=== PATIENT | male | born 1985 | race American Indian/Alaskan Native ===

== ENCOUNTER 2016-11-19 18:05 | Emergency (ER) | payer SELFPAY ==
[2016-11-19 18:24] VITALS: BP 129/73
[2016-11-19] MEDS ORDERED: TYLENOL ONE (19:38)
[2016-11-19] MEDS ORDERED: TYLENOL PO ONE (19:40)
[2016-11-19] MEDS ORDERED: ROBITUSSIN AC PO ONE (19:54)
--- NOTE | 2016-11-19 19:56 | Emergency Department Report ---
HPI - General Chief Complaint: Upper Respiratory Infection Time Seen by Provider: 11/19/16 19:50 - HPI HPI: 31-year-old male presents to the ED she productive cough and generalized body aches 3 days. Patient states he has had symptoms for the past 3 days. Patient states that the Robitussin and TheraFlu and getting worse. Patient denies any sick contacts recently. No recent travel outside the country. Patient states he has been experiencing chills past couple of days. Patient denies nausea/vomiting/abdominal pain/chest pain/shortness of breath/ diarrhea. ED Past Medical Hx - Past Medical History Previous Medical History?: Yes Hx Asthma: Yes - Surgical History Past Surgical History?: Yes Hx Appendectomy: Yes - Social History Smoking Status: Current Every Day Smoker Substance Use Type: None - Medications Home Medications: Home Medications Medication Instructions Recorded Confirmed Last Taken Type Cyclobenzaprine [Flexeril 10 MG 10 mg PO TID PRN #3 tablet 03/19/14 Unknown Rx TAB] HYDROcodone/APAP 7.5-325 [[place] 1 each PO Q6HR PRN #20 tablet 03/19/14 Unknown Rx 7.5-325 mg TAB] Indomethacin 50 mg PO BID #30 capsule 03/01/15 Unknown Rx methOCARBAMOL [Robaxin TAB] 500 mg PO BID #30 tab 03/01/15 Unknown Rx Azithromycin [Zithromax] 250 mg PO DAILY #4 tablet 11/19/16 Unknown Rx Ibuprofen [Motrin 600 MG tab] 600 mg PO Q8H PRN #50 tablet 11/19/16 Unknown Rx guaiFENesin/CODEINE [Robitussin AC] 10 ml PO TID #90 ml 11/19/16 Unknown Rx ED Review of Systems ROS: Stated complaint: BODY ACHES Other details as noted in HPI Constitutional: denies: chills, fever, weakness Eyes: denies: eye pain, eye discharge, vision change ENT: denies: ear pain, throat pain, dental pain, hearing loss, epistaxis, congestion Respiratory: denies: cough, shortness of breath, wheezing Cardiovascular: denies: chest pain, palpitations Endocrine: no symptoms reported Gastrointestinal: denies: abdominal pain, nausea, vomiting, diarrhea, constipation, melena Genitourinary: denies: urgency, dysuria, frequency, hematuria, testicular pain, testicular mass Musculoskeletal: denies: back pain, joint swelling, arthralgia, myalgia Skin: denies: rash, lesions Neurological: denies: headache, weakness, numbness, paresthesias, confusion, abnormal gait Psychiatric: denies: anxiety, depression, homicidal thoughts, suicidal thoughts Hematological/Lymphatic: denies: easy bleeding, easy bruising, swollen glands Physical Exam - Physical Exam Vital Signs: Vital Signs 11/19/16 18:20 Temperature 100.2 F H Pulse Rate 61 Respiratory 24 Rate Blood Pressure 129/73 O2 Sat by Pulse 100 Oximetry Physical Exam: GENERAL: Alert and oriented x3, no apparent distress, Normal Gait, atraumatic. HEAD: Head is normocephalic and a-traumatic. EYES: Extra ocular muscles are intact. Pupils are equal, round, and reactive to light and accommodation. EARS: symetrical, atraumatic, non tender, ear canal clear and moderate cerumen, tympanic membrance non inflamed. gross auditory nml bilaterally. NOSE: Nose symetrical, Nontender,Nares appeared normal. MOUTH:Mouth is well hydrated and without lesions. Tonsils nonerythematous or swollen, Uvula midline, Tongue not elevated. Mucous membranes are moist. Posterior pharynx clear, no exudate or lesions. Patent airways. NECK: Supple. Non edematous, No carotid bruits. No lymphadenopathy or thyromegaly. LUNGS: Symetrical with respiration, No wheezing, no rales or crackles, CTAB. HEART: S1, S2 present, regular rate and rhythm without murmur, no rubs, no gallops. ABDOMEN: No organomegaly was noted,Positive bowel sounds, soft, and non- distended. . Nontender to palpation on all Quadrants, NO CVA tenderness. SKIN: Warm and dry, No lesions, No ulceration or induration present. ED Course Vital Signs 11/19/16 18:20 Temperature 100.2 F H Pulse Rate 61 Respiratory 24 Rate Blood Pressure 129/73 O2 Sat by Pulse 100 Oximetry ED Medical Decision Making - Radiology Data Radiology results: report reviewed, image reviewed FINAL REPORT EXAM: XR CHEST ROUTINE 2V HISTORY: cough/timothy/fever TECHNIQUE: Two view chest PA and lateral PRIORS: None. FINDINGS: Cardiac and mediastinal contours are unremarkable. No focal pulmonary infiltrate is identified. No pleural fluid collection seen. Pulmonary vasculature is unremarkable. IMPRESSION: Negative two-view chest Transcribed By: MARICRUZ Dictated By: BELLE RIVERS MD Electronically Authenticated By: BELLE RIVERS MD Signed Date/Time: 11/19/162021 - Medical Decision Making 31-year-old male presents with ED course: Patient received 650 mg of Tylenol, Robitussin-AC. Patient received azithromycin 500 mg in ED Chest x-ray ordered. Chest x-ray normal. Influenza test ordered. Influenza A and B negative. Discussed with patient full symptoms usually lasts for 4 weeks. Discussed follow-up. Primary care physician as referred. Discussed to take medication as prescribed. Patient states he understands and will follow-up. Vital signs are normal, fever was responsive to Tylenol. Critical care attestation.: If time is entered above; I have spent that time in minutes in the direct care of this critically ill patient, excluding procedure time. ED Disposition Clinical Impression: Flu-like symptoms, Bronchitis Disposition: DISCHARGED TO HOME OR SELFCARE Is pt being admited?: No Does the pt Need Aspirin: No Condition: Stable Instructions: Upper Respiratory Infection (ED), Acute Bronchitis (ED), Chronic Bronchitis (ED) Prescriptions: Azithromycin [Zithromax] 250 mg PO DAILY #4 tablet guaiFENesin/CODEINE [Robitussin AC] 10 ml PO TID #90 ml Ibuprofen [Motrin 600 MG tab] 600 mg PO Q8H PRN #50 tablet PRN Reason: Pain Referrals: PRIMARY MD CORNELL [Primary Care Provider] - 3-5 Days LAYO SIN MD [Referring] - 3-5 Days [facility] [Outside] - 3-5 Days [facility] [Outside] - 3-5 Days [facility] [Outside] - 3-5 Days Forms: Accompanied Note, Work/School Release Form(ED) Time of Disposition: 20:54
--- NOTE | 2016-11-19 20:25 | XRay Report ---
FINAL REPORT EXAM: XR CHEST ROUTINE 2V HISTORY: cough/timothy/fever TECHNIQUE: Two view chest PA and lateral PRIORS: None. FINDINGS: Cardiac and mediastinal contours are unremarkable. No focal pulmonary infiltrate is identified. No pleural fluid collection seen. Pulmonary vasculature is unremarkable. IMPRESSION: Negative two-view chest
[2016-11-19] MEDS ORDERED: ZITHROMAX PO ONE (20:53)
== END 2016-11-19 21:23 | disposition home or self-care (01) ==
LOC: ED 18:05
DX: J40 Bronchitis, not specified as acute or chronic (principal); J45.909 Unspecified asthma, uncomplicated; F17.200 Nicotine dependence, unspecified, uncomplicated; Z90.49 Acquired absence of other specified parts of digestive tract
CPT/HCPCS: 71020; 87400; 99283